=== PATIENT | male | born 2000 | race Caucasian/White ===

== ENCOUNTER 2023-11-14 08:42 | Inpatient (IN) | payer BC, OTHER ==
[2023-11-14 09:05] LABS: #Basophils 0.05 10x3/uL (0.0-0.2); %Basophils 0.5 % (0.0-1.0); %Eosinophils 1.6 % (0.0-10.0); %Lymphocytes 9.8 % (21.0-51.0); %Monocytes 5.9 % (0.0-10.0); %Neutrophils 81.5 % (42.0-75.0); Hematocrit 42.4 % (42.0-52.0); Mean Corpuscular HGB CONC 35.4 g/dL (32.0-36.0); Mean Corpuscular Hemoglobin 29.1 pg (27.0-31.0); Mean Corpuscular Volume 82.3 fL (78.0-98.0); Mean Platelet Volume 9.6 fL (7.4-10.4); Platelet Count 311 10x3/uL (130-400); RBC Distribution Width 12.1 % (11.5-14.5); Red Blood Cell (RBC) Count 5.15 mill/uL (4.70-6.10)
[2023-11-14 09:33] LABS: ALT (SGPT) 25 U/L (8-55); AST (SGOT) 31 U/L (5-34); Albumin 4.4 g/dL (3.5-5.0); Alkaline Phosphatase 77 U/L (40-110); Anion Gap 20 mmol/L (10-20); BUN (Urea Nitrogen) 12 mg/dL (8.9-20.6); Bilirubin, Total 0.5 mg/dL (0.2-1.2); Calc. Creatinine Clearance 0 mL/min (70-130); Calcium 10.1 mg/dL (7.8-10.44); Carbon Dioxide 20 mmol/L (22-29); Chloride 103 mmol/L (98-107); Estimated GFR 72; Globulin 2.8 g/dL (2.4-3.5); Glucose 91 mg/dL (70-105); Potassium 3.7 mmol/L (3.5-5.1); Protein, Total 7.2 g/dL (6.0-8.3); Sodium 139 mmol/L (136-145)
[2023-11-14 09:42] LABS: Troponin I 0.011 ng/mL (< 0.028)
[2023-11-14] MEDS ORDERED: Ondansetron ODT 4 MG TAB PO PRN (15:32)
[2023-11-14] MEDS ORDERED: Acetaminophen 325 MG TAB PO PRN (15:32)
[2023-11-14] MEDS ORDERED: Acetaminophen 650 MG Suppository PR PRN (15:32)
[2023-11-14] MEDS ORDERED: Ondansetron PF 4 MG/2 ML Vial IVP PRN (15:32)
[2023-11-14 15:38] VITALS: BMI 25.9
[2023-11-14] MEDS: Sodium Chloride 0.9% 1,000 ML IV SCH (17:02)
[2023-11-15 06:00] LABS: #Basophils 0.05 10x3/uL (0.0-0.2); %Basophils 0.7 % (0.0-1.0); %Eosinophils 4.2 % (0.0-10.0); %Lymphocytes 30.4 % (21.0-51.0); %Monocytes 7.5 % (0.0-10.0); %Neutrophils 57.1 % (42.0-75.0); Hemoglobin 13.1 g/dL (14.0-18.0); Mean Corpuscular HGB CONC 34.5 g/dL (32.0-36.0); Mean Corpuscular Hemoglobin 29.6 pg (27.0-31.0); Mean Corpuscular Volume 85.8 fL (78.0-98.0); Mean Platelet Volume 9.6 fL (7.4-10.4); Platelet Count 203 10x3/uL (130-400); RBC Distribution Width 12.4 % (11.5-14.5); Red Blood Cell (RBC) Count 4.43 mill/uL (4.70-6.10)
[2023-11-15 08:23] LABS: CK (CPK) 19158 U/L (30-200)
[2023-11-15 08:28] LABS: Anion Gap 8 mmol/L (10-20); BUN (Urea Nitrogen) 10 mg/dL (8.9-20.6); Calc. Creatinine Clearance 166 mL/min (70-130); Calcium 8.8 mg/dL (7.8-10.44); Carbon Dioxide 25 mmol/L (22-29); Chloride 110 mmol/L (98-107); Estimated GFR 121; Glucose 94 mg/dL (70-105); Potassium 3.5 mmol/L (3.5-5.1); Sodium 139 mmol/L (136-145)
[2023-11-15] MEDS: Lactated Ringer's 1,000 ML IV SCH (09:10)
[2023-11-16 05:38] LABS: #Basophils 0.04 10x3/uL (0.0-0.2); %Basophils 0.5 % (0.0-1.0); %Lymphocytes 27.4 % (21.0-51.0); Hematocrit 40.8 % (42.0-52.0); Hemoglobin 14.2 g/dL (14.0-18.0); Mean Corpuscular HGB CONC 34.8 g/dL (32.0-36.0); Mean Corpuscular Hemoglobin 29.7 pg (27.0-31.0); Mean Corpuscular Volume 85.4 fL (78.0-98.0); Mean Platelet Volume 9.7 fL (7.4-10.4); Platelet Count 214 10x3/uL (130-400); RBC Distribution Width 12.3 % (11.5-14.5); Red Blood Cell (RBC) Count 4.78 mill/uL (4.70-6.10)
[2023-11-16 06:15] LABS: CK (CPK) 11677 U/L (30-200)
[2023-11-16 06:20] LABS: Anion Gap 9 mmol/L (10-20); BUN (Urea Nitrogen) 8 mg/dL (8.9-20.6); Calc. Creatinine Clearance 182 mL/min (70-130); Calcium 9.5 mg/dL (7.8-10.44); Carbon Dioxide 27 mmol/L (22-29); Chloride 106 mmol/L (98-107); Estimated GFR 125; Glucose 80 mg/dL (70-105); Potassium 3.7 mmol/L (3.5-5.1); Sodium 138 mmol/L (136-145)
[2023-11-17 05:46] LABS: Anion Gap 12 mmol/L (10-20); BUN (Urea Nitrogen) 11 mg/dL (8.9-20.6); Calc. Creatinine Clearance 161 mL/min (70-130); Calcium 9.5 mg/dL (7.8-10.44); Carbon Dioxide 29 mmol/L (22-29); Chloride 103 mmol/L (98-107); Estimated GFR 116; Glucose 107 mg/dL (70-105); Potassium 3.8 mmol/L (3.5-5.1); Sodium 140 mmol/L (136-145)
[2023-11-17 05:53] LABS: CK (CPK) 8736 U/L (30-200)
[2023-11-17] MEDS: Lactated Ringer's 1,000 ML IV SCH (12:30)
[2023-11-18 12:07] LABS: CK (CPK) 7671 U/L (30-200)
[2023-11-18] MEDS: Lactated Ringer's 1,000 ML IV SCH (12:09)
[2023-11-18 12:12] LABS: Anion Gap 12 mmol/L (10-20); BUN (Urea Nitrogen) 10 mg/dL (8.9-20.6); Calc. Creatinine Clearance 176 mL/min (70-130); Calcium 10.1 mg/dL (7.8-10.44); Carbon Dioxide 26 mmol/L (22-29); Chloride 106 mmol/L (98-107); Estimated GFR 124; Glucose 97 mg/dL (70-105); Potassium 3.9 mmol/L (3.5-5.1); Sodium 140 mmol/L (136-145)
[2023-11-18] MEDS ORDERED: Hydrocortisone Sod Succ/PF 100 mg/2 ml Vial IVP SCH ×2 (12:44→18:00)
[2023-11-18] MEDS: methylPREDNISolone Sod Succ 40 MG VIAL IVP SCH ×2 (13:11→17:04)
[2023-11-19 09:32] LABS: CK (CPK) 5246 U/L (30-200)
[2023-11-19 09:42] LABS: Anion Gap 14 mmol/L (10-20); BUN (Urea Nitrogen) 15 mg/dL (8.9-20.6); Calc. Creatinine Clearance 176 mL/min (70-130); Calcium 10.6 mg/dL (7.8-10.44); Carbon Dioxide 25 mmol/L (22-29); Chloride 105 mmol/L (98-107); Estimated GFR 124; Glucose 137 mg/dL (70-105); Potassium 4.3 mmol/L (3.5-5.1); Sodium 140 mmol/L (136-145)
[2023-11-19] MEDS: Lactated Ringer's 1,000 ML IV SCH ×2 (12:27→20:15)
[2023-11-20 05:45] LABS: Anion Gap 14 mmol/L (10-20); BUN (Urea Nitrogen) 10 mg/dL (8.9-20.6); CK (CPK) 2298 U/L (30-200); Calc. Creatinine Clearance 182 mL/min (70-130); Calcium 9.5 mg/dL (7.8-10.44); Carbon Dioxide 24 mmol/L (22-29); Chloride 108 mmol/L (98-107); Estimated GFR 125; Glucose 149 mg/dL (70-105); Potassium 3.9 mmol/L (3.5-5.1); Sodium 142 mmol/L (136-145)
[2023-11-20] MEDS: Lactated Ringer's 1,000 ML IV SCH (12:12)
[2023-11-20 13:30] VITALS: BP 129/75; TEMP 97.7
== END 2023-11-20 13:41 | disposition home or self-care (01) | DRG 683 ==
LOC: ERS 08:42 → T4-A 14:21 → OBSVTOIN 11-15 14:59
PROVIDERS: ADMIT Family Medicine; ATTEND Internal Medicine
DX: N17.9 Acute kidney failure, unspecified (principal); M62.82 Rhabdomyolysis; D72.829 Elevated white blood cell count, unspecified; E86.0 Dehydration; R19.7 Diarrhea, unspecified; Z90.49 Acquired absence of other specified parts of digestive tract
CPT/HCPCS: 36415; 36416; 80048; 80053; 82550; 84484; 85025; 93005; 93306; 96360; 96361; J2920; J7050; J7120